=== PATIENT | male | born 1985 | race Caucasian/White ===

== ENCOUNTER 2021-08-08 12:36 | Emergency (ER) | payer SELFPAY ==
[2021-08-08 12:38] VITALS: BP 131/89; PULSE 89; RESP 18; TEMP 36.9; O2SAT 95; BMI 27.7
--- NOTE | 2021-08-08 13:17 | [facility].EDSOB ---
ED Disposition Clinical Impression: Bronchitis due to 2019 novel coronavirus Disposition: Home, Self-Care Condition on Discharge: Fair Instructions: Acute Bronchitis Additional Instructions: Drink plenty of fluids. Follow-up with your primary care physician as needed. Return to the emergency department if you feel worse in any way. Take [id number] ibuprofen and/or Tylenol as needed. Referrals: Provider,Referral, [Primary Care Provider] - 7-14 days - Critical Care Critical Care Time: No Attestation: On 08/08/21, the high probability of a clinically significant, sudden or life threatening deterioration of the following system(s) required my full and direct attention, intervention and personal management. The time I documented below is in addition to time spent performing reported procedures but includes the following listed in this critical care notation. Medical Decision Making - Medical Records Medical records reviewed: Yes: I reviewed the patient's medical records. - Rene Inquiry Pt receiving controlled substance: No Vital Signs: 08/08/21 12:38 Temperature 98.4 F Temperature Source Oral Pulse Rate [Right Radial] 89 Respiratory Rate 18 Blood Pressure [Left Arm] 131/89 Blood Pressure Mean [Left Arm] 103 Blood Pressure Source [Left Arm] Automatic Cuff Blood Pressure Position [Left Arm] Sitting 02 Sat by Pulse Oximetry 95 Oxygen Delivery Method Room Air - Lab Data Lab results reviewed: Yes: I reviewed the patient's lab results. Lab Results 08/08/21 13:22: WBC 4.8, RBC 5.34, Hgb 15.8, Hct 46.0, MCV 86.1, MCH 29.5, MCHC 34.3, RDW 13.4, Plt Count 266, MPV 7.5, Neut % (Auto) 62.2, Lymph % (Auto) 30.8, [place] % (Auto) 6.4, Eos % (Auto) 0.1, Baso % (Auto) 0.5, Neut # (Auto) 3.0, Lymph # (Auto) 1.5, [place] # (Auto) 0.3, Eos # (Auto) 0.0, Baso # (Auto) 0.0 08/08/21 13:22: Sodium 133 L, Potassium 3.4 L, Chloride 93 L, Carbon Dioxide 30, Anion Gap 13.4, BUN 10, Creatinine 0.70, Estimated Creat Clear 198, Estimated GFR 128, Est GFR ( Amer) 155, Glucose 103 H, Calcium 8.6, Total Bilirubin 0.5, AST 66 H, ALT 68, Alkaline Phosphatase 80, Total Protein 7.6, Albumin 4.2, Globulin 3.4 H, Albumin/Globulin Ratio 1.2 Result diagrams: 08/08/21 13:22 08/08/21 13:22 Orders (Tests/Meds): ED MEDICATIONS Generic Name Dose Route Start Last Admin Trade Name Freq PRN Reason Stop Dose Admin Lactated Ringer's 1,000 mls @ 999 mls/hr 08/08/21 14:18 08/08/21 14:21 Lactated Ringer's 1000 Ml Bag IV 08/08/21 15:18 999 mls/hr .[id number] ONE Administration - Radiology Data #1 Image(s): Chest Image Reviewed: Yes I reviewed the patient's radiology image, Yes I have reviewed radiologist's interpretation Preliminary Findings: Abnormal (Mild groundglass appearance consistent with COVID-19) Medical Decision Narrative: The patient's work-up in the emergency department today did not reveal any life-threatening or dangerous conditions. The patient's oxygen saturations were normal. His renal functions are normal. There is no evidence of dehydration. Patient has a known diagnosis of COVID-19. I suspect that the patient's symptoms are secondary to COVID-19. He does not meet admission criteria. He can be safely discharged with follow-up. Resp/SOB HPI - General Chief Complaint: Shortness of Breath/Dyspnea Stated Complaint: dizziness, NOVAK, confusion, covid pos Time Seen by Provider: 08/08/21 13:17 Mode of Arrival: Ambulatory Source of Information: Patient - History of Present Illness The patient presents to the emergency department complaining of confusion, shortness of breath, cough, myalgias, white tongue, and decreased appetite. This has been ongoing for about a week and a half. He was diagnosed with COVID-19 in the last week. Apparently has been seen in another ER twice already and was discharged home. He has come to this emergency department because he feels that he is dehydrated and that there must be some
--- NOTE | 2021-08-08 13:21 | XR_ITS ---
PROCEDURE: XR CHEST PORTABLE CLINICAL HISTORY: Dyspnea, COVID+ COMPARISON: No exams were available for comparison FINDINGS: The cardiomediastinal silhouette and pulmonary vascularity are within normal limits. Faint increased density is present in the left lower lobe laterally suggesting an area ground-glass infiltrate which may be seen with Covid19 pneumonia. Remaining lungs are clear. No effusions. No acute bony findings. IMPRESSION: No acute findings. Dictated by: Lyndon Bruce MD 08/08/2021 13:42 Lyndon Bruce MD in [place] 08/08/2021 13:42
[2021-08-08 13:34] LABS: Basophils % 0.5 % (0.1-2.0); Eosinophils % 0.1 % (0.1-12.0); Hemoglobin 15.8 g/dL (14.1-18.0); Lymphocytes # 1.5 K/mm3 (0.7-4.5); Lymphocytes % 30.8 % (10-50); Mean Corpuscular HGB Conc 34.3 g/dL (31.8-35.4); Mean Corpuscular Hemoglobin 29.5 pg (27.0-31.2); Mean Corpuscular Volume 86.1 fl (80-94); Mean Platelet Volume 7.5 fl (7.4-10.4); Monocytes # 0.3 K/mm3 (0.1-1.0); Monocytes % 6.4 % (1.7-9.3); Neutrophils % 62.2 % (37.0-80.0); Platelet Count 266 K/mm3 (142-424); Red Blood Count 5.34 M/mm3 (4.60-6.20); Red Cell Distribution Width 13.4 % (11.5-17.5); White Blood Count 4.8 K/mm3 (4.8-10.8)
[2021-08-08 13:43] LABS: Chloride 93 mmol/L (98-107); Potassium 3.4 mmoL/L (3.5-5.1); Sodium 133 mmol/L (136-145)
[2021-08-08 13:45] LABS: Blood Urea Nitrogen 10 mg/dl (9-20); Creatinine Clearance Estimated 198 mL/min (50-200); Estimated Glomerular Filt Rate 128 ml/min (>60); GFR (African American) 155 ML/MIN (>60)
[2021-08-08 13:46] LABS: Alanine Aminotransferase 68 U/L (12-78); Albumin Level 4.2 g/dl (3.5-5.0); Albumin/Globulin Ratio 1.2 (1.1-1.8); Alkaline Phosphatase 80 U/L (38-126); Anion Gap 13.4 mEq/L (5-15); Aspartate Amino Transferase 66 U/L (17-59); Bilirubin,Total 0.5 mg/dl (0.2-1.3); Calcium 8.6 mg/dl (8.4-10.2); Carbon Dioxide 30 mmol/L (22.0-30.0); Globulin 3.4 g/dL (1.3-3.2); Glucose 103 mg/dl (74-100); Total Protein,Serum 7.6 g/dl (6.3-8.2)
[2021-08-08 16:17] VITALS: BP 128/79; PULSE 74; RESP 16; TEMP 37.2; O2SAT 97
== END 2021-08-08 16:19 | disposition home or self-care (01) ==
PROVIDERS: Emergency Provider Emergency Medicine
DX: U07.1 COVID-19 (principal)
CPT/HCPCS: 71045; 80053; 85025; 96365; 99282